=== PATIENT | female | born 1940 | race African-American/Black ===

== ENCOUNTER 2018-02-25 09:42 | Emergency (ER) | payer OTHER ==
[2018-02-25 09:48] VITALS: BMI 31.3
--- NOTE | 2018-02-25 10:08 | PDOC ---
History of Present Illness - General Chief Complaint: Pain, Acute Stated Complaint: LOWER BACK/FLANK,PAIN, ACUTE Time Seen by Provider: 02/25/18 10:06 History Source: Patient Exam Limitations: No Limitations Past History - Travel Traveled outside of the country in the last 30 days: No Close contact w/someone who was outside of country & ill: No - Past Medical History Allergies/Adverse Reactions: Allergies Allergy/AdvReac Type Severity Reaction Status Date / Time latex Allergy Verified 02/25/18 09:44 morphine Allergy Verified 02/25/18 09:45 Home Medications: Ambulatory Orders Amlodipine Besylate [Norvasc -] 10 mg PO DAILY 04/26/14 Aspirin [Aspirin EC] 81 mg PO DAILY 04/26/14 metFORMIN HCL [Glucophage -] 500 mg PO BID 04/26/14 Losartan/Hydrochlorothiazide [Losartan-Hctz 50-12.5 mg Tab] 1 each PO DAILY 01/06 Cyclobenzaprine HCl [Flexeril 10 mg] 10 mg PO BID PRN 02/25/18 Naproxen 500 mg PO BID 02/25/18 COPD: No Diabetes: Yes HTN: Yes - Suicide/Smoking/Psychosocial Hx Smoking History: Former smoker Have you smoked in the past 12 months: No If you are a former smoker, when did you quit?: 2004 Information on smoking cessation initiated: No Hx Alcohol Use: Yes (occasional) Substance Use Type: Alcohol Review of Systems - Review of Systems Able to Perform ROS?: Yes Comments:: 02/25/18 14:13 CONSTITUTIONAL: Absent: fever, chills, diaphoresis, generalized weakness, malaise, loss of appetite GASTROINTESTINAL: Absent: abdominal pain, abdominal distension, nausea, vomiting, diarrhea, constipation, melena, hematochezia GENITOURINARY: Absent: dysuria, frequency, urgency, hesitancy, hematuria, flank pain, genital pain MUSCULOSKELETAL: Present: low back pain Absent: arthralgia, joint swelling SKIN: Absent: rash, itching, pallor NEUROLOGIC: Absent: headache, focal weakness or paresthesias, dizziness, unsteady gait, seizure, mental status changes, bladder or bowel incontinence PSYCHIATRIC: Absent: anxiety, depression, suicidal or homicidal ideation, hallucinations. Is the patient limited [place] proficient: No *Physical Exam - Vital Signs Last Vital Signs Temp Pulse Resp BP Pulse Ox 98 F 102 H 18 140/86 100 02/25/18 09:45 02/25/18 09:45 02/25/18 09:45 02/25/18 09:45 02/25/18 09:45 - Physical Exam Comments: 02/25/18 14:13 GENERAL: Well developed, well nourished. Awake and alert. No acute distress. HEENT: Normocephalic, atraumatic. PERRLA, EOMI. No conjunctival pallor. Sclera are non- icteric. Moist mucous membranes. Oropharynx is clear. NECK: Supple. Full ROM. No JVD. Carotid pulses 2+ and symmetric, without bruits. No thyromegaly. No lymphadenopathy. CARDIOVASCULAR: Regular rate and rhythm. No murmurs, rubs, or gallops. Distal pulses are 2+ and symmetric. PULMONARY: No evidence of respiratory distress. Lungs clear to auscultation bilaterally. No wheezing, rales or rhonchi. ABDOMINAL: Soft. Non-tender. Non-distended. No rebound or guarding. No organomegaly. Normoactive bowel sounds. MUSCULOSKELETAL Normal range of motion at all joints. No bony deformities or tenderness. No CVA tenderness. EXTREMITIES: No cyanosis. No clubbing. No edema. No calf tenderness. SKIN: Warm and dry. Normal capillary refill. No rashes. No jaundice. NEUROLOGICAL: Alert, awake, appropriate. Cranial nerves 2-12 intact. No deficits to light touch and temperature in face, upper extremities and lower extremities. No motor deficits in the in face, upper extremities and lower extremities. Normoreflexic in the upper and lower extremities. Normal speech. Toes are down- going bilaterally. Gait is normal without ataxia. PSYCHIATRIC: Cooperative. Good eye contact. Appropriate mood and affect. Moderate Sedation - Procedure Monitoring Vital Signs: Procedure Monitoring Vital Signs Temperature 98 F 02/25/18 09:45 Pulse Rate 102 H 02/25/18 09:45 Respiratory Rate 18 02/25/18 09:45 Blood Pressure 140/86 02/25/18 09:45 O2 Sat by Pulse Oximetry (%) 100 02/25/18 09:45 Medical Decision Making - Medical Decision Making 02/25/18 14:13 Pt is a 89 y/o F who presents to the ED for R sided back pain and sciatica starting two days ago. -Pt with TTP of the L paraspinous muscles, L5-S1, with palpable knot consistent with muscle spasm. (+) straight leg raise. -No trauma, or fever. No saddle anesthesia or bladder/bowel incontinence. No CVA tenderness. -Pt is neurologically intact on exam with no focal findings. -Toradol, valium given with minimal relief of symptoms -Pt given 1mg of dialudid with complete relief of symptoms. -DC home. Pt has follow up with both her PCP and ortho, with MRI ordered for next week. -I discussed the physical exam findings, ancillary test results and final diagnoses with the patient. I answered all of the patient's questions. The patient was satisfied with the care received and felt comfortable with the discharge plan and treatment plan. The Patient agrees to follow up with the primary care physician/specialist within 24-72 hours. Return precautions were given. *DC/Admit/Observation/Transfer Diagnosis at time of Disposition: Acute low back pain with sciatica Qualifiers: Back pain laterality: right Sciatica laterality: sciatica of right side Qualified Code(s): M54.41 - Lumbago with sciatica, right side - Discharge Dispostion Disposition: HOME Condition at time of disposition: Stable Decision to Admit order: No - Referrals Referrals: Hadley Luong [Primary Care Provider] - - Patient Instructions Printed Discharge Instructions: DI for Low Back Pain Additional Instructions: You have low back pain . Please continue all medications as previously prescribed starting tonight before bed. Take the flexeril before you go to bed. Do not drive after taking this medication as it may make you sleepy. You may use warm compresses on your back to help with her symptoms. Please follow-up with your primary care doctor as previously arranged. Make sure to get your MRI as scheduled. Return to the emergency department if you have worsening back pain, bladder or bowel incontinence, numbness and tingling in her legs, changes in the way you walk, or any new or worsening symptoms. - Post Discharge Activity
[2018-02-25] MEDS ORDERED: diazePAM 5 MG TABLET ONE (10:34)
[2018-02-25] MEDS ORDERED: KETOROLAC TROMETHAMINE 15 MG/ML VIAL IM ONE (10:34)
[2018-02-25] MEDS ORDERED: diazePAM 5 MG TABLET PO ONE (10:34)
[2018-02-25] MEDS ORDERED: KETOROLAC TROMETHAMINE 15 MG/ML VIAL ONE (10:35)
[2018-02-25] MEDS ORDERED: HYDROmorphone HCL CARPU-JECT 2 MG/1 ML DISP.SYRIN IM ONE (13:10)
[2018-02-25] MEDS ORDERED: HYDROmorphone HCl 2 MG/ML VIAL ONE (13:15)
[2018-02-25 13:25] VITALS: BP 170/97; PULSE 72; TEMP 98.7
== END 2018-02-25 14:25 | disposition home or self-care (01) ==
LOC: JER 09:42
PROC: 3E033NZ Introduction of Analgesics, Hypnotics, Sedatives into Peripheral Vein, Percutaneous Approach (ICD-10-PCS; principal; 2018-02-25)
DX: M54.41 Lumbago with sciatica, right side (principal); M62.830 Muscle spasm of back; I10 Essential (primary) hypertension; E11.9 Type 2 diabetes mellitus without complications; Z79.84 Long term (current) use of oral hypoglycemic drugs
CPT/HCPCS: 96372; 99282-25

== ENCOUNTER 2018-10-09 13:57 | Emergency (ER) | payer OTHER ==
[2018-10-09 14:05] VITALS: BP 163/79; PULSE 74; TEMP 99.3; BMI 31.3
[2018-10-09] MEDS ORDERED: KETOROLAC TROMETHAMINE 60 MG/2 ML VIAL IM ONE (14:07)
[2018-10-09] MEDS ORDERED: KETOROLAC TROMETHAMINE 60 MG/2 ML VIAL ONE (14:09)
--- NOTE | 2018-10-09 14:19 | PDOC ---
Documentation entered by Fritz Barboza SCRIBE, acting as scribe for Cassandra Downing MD. Cassandra Downing MD: This documentation has been prepared by the Jabari escudero Daniel, SCRIBE, under my direction and personally reviewed by me in its entirety. I confirm that the documentation accurately reflects all work, treatment, procedures, and medical decision making performed by me. History of Present Illness - General Chief Complaint: Pain Stated Complaint: back pain Time Seen by Provider: 10/09/18 13:59 History Source: Patient Exam Limitations: No Limitations - History of Present Illness Initial Comments: 10/09/18 14:15 The patient is a 78 year old female with a past medical history of sciatica, diabetes, and HTN here today for evaluation of left lower extremity pain. The patient reports that her pain started on Friday and radiates from her left buttock down her left leg. She reports that this pain is the same as the sciatica pain she has had in the past. She notes taking tylenol and flexeril which provided no relief. She denies any weakness in her legs or any trauma. Denies nausea, vomiting, diarrhea, abdominal pain. Denies any urinary symptoms. Allergies: latex, morphine Past History - Past Medical History Allergies/Adverse Reactions: Allergies Allergy/AdvReac Type Severity Reaction Status Date / Time latex Allergy Verified 10/09/18 13:59 morphine Allergy Verified 10/09/18 13:59 Home Medications: Ambulatory Orders Amlodipine Besylate [Norvasc -] 10 mg PO DAILY 04/26/14 Aspirin [Aspirin EC] 81 mg PO DAILY 04/26/14 metFORMIN HCL [Glucophage -] 500 mg PO BID 04/26/14 Losartan/Hydrochlorothiazide [Losartan-Hctz 50-12.5 mg Tab] 1 each PO DAILY 01/06 Naproxen 500 mg PO BID 02/25/18 COPD: No Diabetes: Yes HTN: Yes Other medical history: sciatic pain - Suicide/Smoking/Psychosocial Hx Smoking History: Never smoked Have you smoked in the past 12 months: No If you are a former smoker, when did you quit?: 2004 Hx Alcohol Use: No Drug/Substance Use Hx: No Substance Use Type: Alcohol Review of Systems - Review of Systems Able to Perform ROS?: Yes Comments:: 10/09/18 14:15 GENERAL/CONSTITUTIONAL: No fever or chills. No weakness. HEAD, EYES, EARS, NOSE AND THROAT: No change in vision. No ear pain or discharge. No sore throat. CARDIOVASCULAR: No chest pain or shortness of breath. RESPIRATORY: No cough, wheezing, or hemoptysis. GASTROINTESTINAL: No nausea, vomiting, diarrhea or constipation. GENITOURINARY: No dysuria, frequency, or change in urination. MUSCULOSKELETAL: +left lower extremity pain. No neck or back pain. SKIN: No rash NEUROLOGIC: No headache, vertigo, loss of consciousness, or change in strength/ sensation. ENDOCRINE: No increased thirst. No abnormal weight change. HEMATOLOGIC/LYMPHATIC: No anemia, easy bleeding, or history of blood clots. ALLERGIC/IMMUNOLOGIC: No hives or skin allergy. *Physical Exam - Vital Signs Last Vital Signs Temp Pulse Resp BP Pulse Ox 99.3 F 74 18 163/79 99 10/09/18 13:58 10/09/18 13:58 10/09/18 13:58 10/09/18 13:58 10/09/18 13:58 - Physical Exam Comments: 10/09/18 14:16 GENERAL: +moderately uncomfortable. Awake, alert, and fully oriented HEAD: No signs of trauma EYES: PERRLA, EOMI, sclera anicteric, conjunctiva clear ENT: Auricles normal inspection, hearing grossly normal, nares patent, oropharynx clear without exudates. Moist mucosa NECK: Normal ROM, supple, no lymphadenopathy, JVD, or masses LUNGS: Breath sounds equal, clear to auscultation bilaterally. No wheezes, and no crackles HEART: Regular rate and rhythm, normal S1 and S2, no murmurs, rubs or gallops ABDOMEN: Soft, nontender, normoactive bowel sounds. No guarding, no rebound. No masses BACK: +paraspinal tenderness in sacral spine. EXTREMITIES: Normal range of motion, no edema. No clubbing or cyanosis. No cords, erythema, or tenderness NEUROLOGICAL: Cranial nerves II through XII grossly intact. Normal speech, normal gait SKIN: Warm, Dry, normal turgor, no rashes or lesions noted. ED Treatment Course - Medications Given in the ED: ED Medications Discontinued Medications Generic Name Dose Route Start Last Admin Trade Name Freq PRN Reason Stop Dose Admin Ketorolac Tromethamine 60 mg 10/09/18 14:07 10/09/18 14:17 Toradol Injection - IM 10/09/18 14:08 60 mg ONCE ONE Administration Medical Decision Making - Medical Decision Making 10/09/18 14:18 Pt presents to the Ed complaining of atraumatic lower back pain radiating down her R leg, similar to previous episodes of sciatica. No neurologic complaints. Will give pain control and reassess--likely discharge home when pain controlled. *DC/Admit/Observation/Transfer Diagnosis at time of Disposition: Acute low back pain with sciatica Qualifiers: Back pain laterality: right Sciatica laterality: sciatica of right side Qualified Code(s): M54.41 - Lumbago with sciatica, right side - Discharge Dispostion Disposition: HOME Condition at time of disposition: Good Decision to Admit order: No - Referrals - Patient Instructions Printed Discharge Instructions: DI for Low Back Pain Additional Instructions: you came to the ED for low back pain which was most likely caused by your sciatica. You should return to the ED for worsening symptoms, including severe pain, loss of bowel or bladder control, pain with fever, weakness of the legs. Call your doctor for follow up on Friday. - Post Discharge Activity
[2018-10-09] MEDS ORDERED: HYDROmorphone HCL CARPU-JECT 1 MG/1 ML DISP.SYRIN IM ONE (14:46)
[2018-10-09] MEDS ORDERED: HYDROmorphone HCL CARPU-JECT 1 MG/1 ML DISP.SYRIN ONE (14:52)
== END 2018-10-09 15:42 | disposition home or self-care (01) ==
LOC: FER 13:57
PROC: 3E0333Z Introduction of Anti-inflammatory into Peripheral Vein, Percutaneous Approach (ICD-10-PCS; principal; 2018-10-09)
PROC: 3E033NZ Introduction of Analgesics, Hypnotics, Sedatives into Peripheral Vein, Percutaneous Approach (ICD-10-PCS; 2018-10-09)
DX: M54.41 Lumbago with sciatica, right side (principal)
CPT/HCPCS: 96372; 99282-25

== ENCOUNTER 2019-12-15 14:35 | Emergency (ER) | payer OTHER ==
[2019-12-15 14:40] VITALS: BP 167/87; PULSE 66; TEMP 99.3; BMI 31.3
--- NOTE | 2019-12-15 14:58 | PDOC ---
History of Present Illness - General History Source: Patient Exam Limitations: No Limitations - History of Present Illness Initial Comments: 12/15/19 15:39 79 y.o. F PMHx HTN, Diabetes, sciatica presenting due to a L sided headache that has been persistent for the past week. Patient states the headache radiated down the neck to the right shoulder asocaited with a L ear pain and dull pain behind to L eye. Patient sttaed the pain is worse when lying down. She has been using her computer frequently this past week which she uses her L arm for. She has not taken anything for the pain. Denies blurry/double vision, dizziness, chest pain, SOB, N/V. PCP: Dr. Luong PMHx: Diabetes, HTN Meds: In Chart Allergies: Latex, morphine CT scan: No acute intracranial pathology Dispo: D/C Home 12/15/19 17:12 Is this a multiple visit Asthma Patient?: No Timing/Duration: 1 week Severity: moderate Associated Symptoms: reports: headaches. denies: chest pain, fever/chills, nausea/vomiting, shortness of breath, syncope Aspirin Received prior to arrival: No: unknown Asa Contraindications(Core Measure): No: Other Beta Petrona Contraindications(Core Measure): Yes: Not Prescribed Beta Petrona Given by EMS(Core Measure): No Beta Petrona Taken at Home(Core Measure): No Beta Petrona Not Indicated at this Time(Core Measure): No <Vishnu Tatum - Last Filed: 12/15/19 17:22> <Maria A Dahl - Last Filed: 12/16/19 07:24> - General Chief Complaint: Headache Stated Complaint: HEADACHE Time Seen by Provider: 12/15/19 15:00 Past History - Medical History Asthma: Yes COPD: No Diabetes: Yes HTN: Yes - Reproductive History Is Patient Now?: No - Immunization History Immunization Up to Date: No - Psycho-Social/Smoking History Smoking History: Never smoked Have you smoked in the past 12 months: No If you are a former smoker, when did you quit?: 2004 Information on smoking cessation initiated: No - Substance Abuse Hx (Audit-C & DAST Scrn) How often the patient has a drink containing alcohol: Never Score: In Men: 4 or > Positive; In Women: 3 or > Positive: 0 Screen Result (Pos requires Nsg. Audit-10AR): Negative In the last yr the pt used illegal drug/Rx for NonMed reason: No Score: Yes response is considered Positive: 0 Screen Result (Positive result requires Nsg. DAST-10): Negative <Vishnu Tatum - Last Filed: 12/15/19 17:22> <Maria A Dahl - Last Filed: 12/16/19 07:24> - Medical History Allergies/Adverse Reactions: Allergies Allergy/AdvReac Type Severity Reaction Status Date / Time latex Allergy Verified 10/09/18 13:59 morphine Allergy Verified 10/09/18 13:59 Home Medications: Ambulatory Orders Amlodipine Besylate [Norvasc -] 10 mg PO DAILY 04/26/14 Aspirin [Aspirin EC] 81 mg PO DAILY 04/26/14 metFORMIN HCL [Glucophage -] 500 mg PO BID 04/26/14 Losartan/Hydrochlorothiazide [Losartan-Hctz 50-12.5 mg Tab] 1 each PO DAILY 02/01/16 Naproxen 500 mg PO BID 02/25/18 Cyclobenzaprine HCl [Flexeril -] 10 mg PO HS #7 tablet 12/15/19 Review of Systems - Review of Systems Able to Perform ROS?: Yes Is the patient limited [place] proficient: No Constitutional: No: Chills, Fever HEENTM: No: Blurred Vision, Double Vision Respiratory: No: Cough, Shortness of Breath Cardiac (ROS): No: Chest Pain, Lightheadedness ABD/GI: No: Constipated, Diarrhea, Nausea, Vomiting : No: Burning, Dysuria Musculoskeletal: Yes: Muscle Pain, Neck Pain. No: Muscle Weakness Integumentary: No: Bruising, Dryness Neurological: Yes: Headache. No: Numbness, Tingling, Dizziness Hematologic/Lymphatic: No: Blood Clots, Easy Bleeding <Vishnu Tatum - Last Filed: 12/15/19 17:22> *Physical Exam - Vital Signs Last Vital Signs Temp Pulse Resp BP Pulse Ox 99.3 F 66 16 167/87 99 12/15/19 14:37 12/15/19 14:37 12/15/19 14:37 12/15/19 14:37 12/15/19 14:37 - Physical Exam General Appearance: Yes: Nourished, Appropriately Dressed. No: Apparent Distress HEENT: positive: Normal ENT Inspection, TMs Normal Respiratory/Chest: positive: Lungs Clear, Normal Breath Sounds. negative: Chest Tender, Respiratory Distress, Accessory Muscle Use, Crackles, Stridor, Wheezing Cardiovascular: positive: Regular Rhythm, Regular Rate. negative: JVD, Murmur Gastrointestinal/Abdominal: positive: Normal Bowel Sounds, Flat, Soft. negative: Tender, Organomegaly, Guarding, Rebound, Tenderness Musculoskeletal: positive: Normal Inspection. negative: CVA Tenderness Neurologic: positive: manager core II-XII NML intact, Fully Oriented, Alert, Normal Mood/Affect, Normal Response, Motor Strength 5/5 <Vishnu Tatum - Last Filed: 12/15/19 17:22> - Vital Signs Last Vital Signs Temp Pulse Resp BP Pulse Ox 99.3 F 66 16 167/87 99 12/15/19 14:37 12/15/19 14:37 12/15/19 14:37 12/15/19 14:37 12/15/19 14:37 - Physical Exam Extremity: positive: Normal Capillary Refill, Normal Inspection, Normal Range of Motion Integumentary: positive: Normal Color, Dry, Warm <Maria A Dahl - Last Filed: 12/16/19 07:24> ED Treatment Course - Medications Given in the ED: ED Medications Discontinued Medications Generic Name Dose Route Start Last Admin Trade Name Raq PRN Reason Stop Dose Admin Acetaminophen 975 mg 12/15/19 15:21 12/15/19 15:44 Tylenol - PO 12/15/19 15:22 975 mg ONCE ONE Administration Lidocaine 1 patch 12/15/19 15:22 12/15/19 15:44 Lidoderm Patch - TP 12/15/19 15:23 1 patch ONCE ONE Administration Methocarbamol 500 mg 12/15/19 15:22 12/15/19 15:52 Robaxin - PO 12/15/19 15:23 Not Given ONCE ONE <Maria A Dahl - Last Filed: 12/16/19 07:24> Medical Decision Making - Medical Decision Making 12/15/19 15:48 79 y.o. F PMHx HTN, Diabetes, sciatica presenting due to a L sided headache that has been persistent for the past week. DDx: Tension headache, Migraine, cluster headache, subarachnoid hemorrhage CT: No acute intracranial pathology Meds given: Lidocaine patch 5%, Tylenol 975mg. Dispo: d/c Home 12/15/19 17:22 <Vishnu Tatum - Last Filed: 12/15/19 17:22> Discharge - Discharge Information Problems reviewed: Yes - Admission No <Vishnu Tatum - Last Filed: 12/15/19 17:22> <Maria A Dahl - Last Filed: 12/16/19 07:24> - Discharge Information Clinical Impression/Diagnosis: Headache Qualifiers: Headache type: unspecified Headache chronicity pattern: unspecified pattern Intractability: not intractable Qualified Code(s): R51 - Headache Condition: Stable Disposition: HOME - Additional Discharge Information Prescriptions: Cyclobenzaprine HCl [Flexeril -] 10 mg PO HS #7 tablet - Follow up/Referral Referrals: Hadley Luong [Primary Care Provider] - Lonny Moreno MD [Staff Physician] - - Patient Discharge Instructions Patient Printed Discharge Instructions: Tension Headache, DI for Hormonal and Tension Headaches Additional Instructions: You were seen in the emergency department for tension headaches. You received a lidocaine patch and tylenol. Your labs and imaging showed no acute intracranial pathology on CT scan. This can be caused by muscle tension. As such you were treated for tension headaches. You were given a lidocaine patch and tylenol in the emergency department and sent home with a prescription of flexeril please be aware to not drive while on this medication as is can cause drowsiness. Please follow up with your primary care physician and or Neurologist regarding your visit to the emergency department. If you experience profound headache, blurry vission, decreased vision, numbness/tingling in the arms or legs, nausea or vomiting please return to the emergency department or call 911. - Post Discharge Activity
[2019-12-15] MEDS ORDERED: ACETAMINOPHEN 500 MG TABLET (FP) PO ONE (15:21)
[2019-12-15] MEDS ORDERED: LIDOCAINE 5% TOPICAL PATCH TP ONE (15:22)
[2019-12-15] MEDS ORDERED: ACETAMINOPHEN 325 MG TABLET (FP) ONE (15:42)
[2019-12-15] MEDS ORDERED: METHOCARBAMOL 500 MG TABLET ONE (15:42)
[2019-12-15] MEDS ORDERED: LIDOCAINE 5% TOPICAL PATCH ONE (15:43)
[2019-12-15] MEDS: METHOCARBAMOL 500 MG TABLET PO ONE ×2 (15:44→15:52)
--- NOTE | 2019-12-15 16:06 | PDOC ---
Documentation entered by Nannette Kim SCRIBE, acting as scribe for Maria A Dahl MD. Maria A Dahl MD: This documentation has been prepared by the Julio escudero Xhesika, SCRIBE, under my direction and personally reviewed by me in its entirety. I confirm that the documentation accurately reflects all work, treatment, procedures, and medical decision making performed by me. Attending Attestation - Resident Resident Name: Vishnu Tatum - ED Attending Attestation I have performed the following: I have examined & evaluated the patient, The case was reviewed & discussed with the resident, I agree w/resident's findings & plan - HPI HPI: 12/15/19 15:26 Patient is a 79 year old female with a pmh of sciatica, diabetes, and HTN who presents to the ED for 1 week of L sided headache and bilateral neck pain/spasms. Pt denies any injuries or trauma. Pt states her pain is associated with L ear pain, worse when laying down and relieved when sitting. Denies fever, chills, chest pain, SOB, palpitation, dizziness, weakness, N, V, D, abdominal pain, bladder and bowel problems, leg swelling, No sick contacts or travel. No new changes in medications. Allergies: Latex, Morphine Past Medical History: see HPI Social history: Lives with family. No tobacco, ETOH or drug use. Meds: as documented in EMR PMD: Nabila Henry - Physicial Exam PE: 12/15/19 15:27 Agree with the resident's HPI and PE as documented in the electronic medical record. NAD, well appearing, EOMI, PERRL, MMM, nl conjunctiva, anicteric; neck supple. lungs clear, RRR, abdomen soft nontender. +bilateral para-cervical tenderness and spasms. Back nontender. HADDAD x4, no focal neuro deficits. speech clear. No peripheral edema. normal color for ethnicity, WWP. 12/16/19 07:25 - Medical Decision Making 12/15/19 16:00 Vital Signs Temp Pulse Resp BP Pulse Ox 99.3 F 66 16 167/87 99 12/15/19 14:37 12/15/19 14:37 12/15/19 14:37 12/15/19 14:37 12/15/19 14:37 DDX headache: migraine, tension, cluster headache, SAH, CVA, head bleed/ICH. no meningeal signs. no fever, nontoxic The patient presents with an acute onset headache for 1 week in duration. Patient has no past history of headaches. There is not a history of anticoagulation, trauma, , cancer or immunocompromised state. Mental status was normal, no neurological deficits were noted. Based on the patient's history and physical there is very low clinical suspicion for significant intracranial pathology. The headache was NOT sudden onset, NOT maximal at onset, there are NO neurologic findings, the patient does NOT have a fever, the patient does NOT have any jaw claudication, the patient does NOT endorse a clotting disorder, patient DENIES any trauma or eye pain and the headache is NOT associated with dizziness or ataxia. Will treatment the patient symptomatically and reassess. Kernig and Brudzinski signs are negative, no petechiae, no photophobia, no dysarthria, no facial asymmetry, and no focal deficits. Very low clinical suspicion for meningitis. No evidence of subarachnoid hemorrhage, intracranial bleed, meningitis, encephalitis, temporal arteritis, or intracranial mass. Patient denies new weakness on one side of the body, diplopia, vertigo, slurred speech, headache, or difficulty walking. head CT to eval for intracranial pathology, pending result most likely tension headache/cervicalgia, given radiation from intense paracervical spasms. 12/16/19 07:25 Discharge - Discharge Information Problems reviewed: Yes Clinical Impression/Diagnosis: Headache Qualifiers: Headache type: unspecified Headache chronicity pattern: unspecified pattern Intractability: not intractable Qualified Code(s): R51 - Headache Condition: Stable Disposition: HOME - Admission No - Additional Discharge Information Prescriptions: Cyclobenzaprine HCl [Flexeril -] 10 mg PO HS #7 tablet - Follow up/Referral Referrals: Lonny Moreno MD [Staff Physician] - Hadley Luong [Primary Care Provider] - - Patient Discharge Instructions Patient Printed Discharge Instructions: Tension Headache, DI for Hormonal and Tension Headaches Additional Instructions: You were seen in the emergency department for tension headaches. You received a lidocaine patch and tylenol. Your labs and imaging showed no acute intracranial pathology on CT scan. This can be caused by muscle tension. As such you were treated for tension headaches. You were given a lidocaine patch and tylenol in the emergency department and sent home with a prescription of flexeril please be aware to not drive while on this medication as is can cause drowsiness. Please follow up with your primary care physician and or Neurologist regarding your visit to the emergency department. If you experience profound headache, blurry vission, decreased vision, numbness/tingling in the arms or legs, nausea or vomiting please return to the emergency department or call 911. - Post Discharge Activity
--- OUTSIDE RECORDS SUMMARY | 2019-12-15 19:35 | XMS ---
:1940 Author Organization [facility] Care Team Providers Name Role Phone GREGG WRIGHT Unavailable Unavailable Re-disclosure Warning The records that you are about to access may contain information from federally- assisted alcohol or drug abuse programs. If such information is present, then the following federally mandated warning applies: This information has been disclosed to you from records protected by federal confidentiality rules (42 CFR part 2). The federal rules prohibit you from making any further disclosure of this information unless further disclosure is expressly permitted by the written consent of the person to whom it pertains or as otherwise permitted by 42 CFR part 2. A general authorization for the release of medical or other information is NOT sufficient for this purpose. The Federal rules restrict any use of the information to criminally investigate or prosecute any alcohol or drug abuse patient.The records that you are about to access may contain highly sensitive health information, the redisclosure of which is protected by Article 27-F of the [facility] Public Health law. If you continue you may haveaccess to information: Regarding HIV / AIDS; Provided by facilities licensed or operated by the [facility] Office of Mental Health; or Provided by the [facility] Office for People With Developmental Disabilities. If such information is present, then the following [facility] mandated warning applies: This information has been disclosed to you from confidential records which are protected by state law. State law prohibits you from making any further disclosure of this information without the specific written consent of the person to whom it pertains, or as otherwise permitted by law. Any unauthorized further disclosure in violation of state law may result in a fine or fci sentence or both. A general authorization for the release of medical or other information is NOT sufficient authorization for further disclosure. Encounters Encounter Providers Location Date Indications Data Source(s ) Outpatient Attender: RAQUEL Hurtado 02/11/2019 [facility] WRIGHTAdmitter: RAQUEL 12:46:00 PM Medic al Center GREGG GARCÍA MATTI SHIUANReferrer: RAQUEL WRIGHT Insurance Providers Payer name Policy type Policy ID Covered Covered constitution party's Policy P diana / Coverage constitution party ID relationship to [facility] ormation type melchor MEDICARE [id number] SP [id number] UMR [id number] SP [id number] MEDICARE [id number] SP [id number] A UMR O [id number] 01 [id number] 01 [id number] 16 6 Problems, Conditions, and Diagnoses Code Display Name Description Problem Type Effective Data Sour ce(s) Dates E55.9 Vitamin D VITAMIN D Diagnosis 02/11/2019 [facility] deficiency, DEFICIENCY, 12:46:[address] unspecified UNSPECIFIED EST E78.5 Hyperlipidemia, HYPERLIPIDEMIA, Diagnosis 02/11/2019 [facility] unspecified UNSPECIFIED 12:46:[address] EST M19.90 Unspecified UNSPECIFIED Diagnosis 02/11/2019 [facility] osteoarthritis, OSTEOARTHRITIS, 12:46:00 PM [facility] unspecified site UNSPECIFIED SITE EST E11.9 Type 2 diabetes TYPE 2 DIABETES Diagnosis 02/11/2019 [facility] mellitus without MELLITUS WITHOUT 12:46:00 PM [facility] complications COMPLICATIONS EST I10 Essential (primary) ESSENTIAL Diagnosis 02/11/2019 [facility] hypertension (PRIMARY) 12:46:[address] HYPERTENSION EST E89.9 OSTEOARTHRITIS, OSTEOARTHRITIS, Diagnosis 02/11/2019 [place] UNSPECI UNSPECI 12:46:00 PM Medical Cente r EST M89.9 Disorder of bone, DISORDER OF BONE, Diagnosis 02/11/2019 [facility] unspecified UNSPECIFIED 12:46:[address] EST Results ID Date Data Source Urinalysis.[id number] 02/11/2019 01:04:00 PM EST [facility] 0 Name Value Range Interpretation Description Data Sup porting Code Source(s) Document(s ) Color of Urine YELLOW <content [facility] styleCode="Abbie Mahnaz d">Color, Medical Urine Center </content>YELL OW <content styleCode="Reyna lics"> (YELLOW )</content> UNK CLEAR <content [facility] styleCode="[facility] d">Urine Medical Clarity Center </content>LELAND R <content styleCode="Reyna lics"> (CLEAR )</content> Glucose NEGATIVE <content [facility] [Mass/volume] styleCode="Abbie Joya in Urine by d">Urine Medical Test strip Glucose Center </content>NEGA TIVE MG/DL<content styleCode="Reyna lics"> (NEGATIVE MG/DL)</conten t> UNK NEGATIVE <content [facility] styleCode="[facility] d">Urine Medical Bilirubin Center </content>NEGA TIVE <content styleCode="Reyna lics"> (NEGATIVE )</content> Ketones NEGATIVE <content [facility] [Mass/volume] styleCode="[facility] Joya in Urine by d">Urine Medical Test strip Ketone Center </content>NEGA TIVE MG/DL<content styleCode="Reyna lics"> (NEGATIVE MG/DL)</conten t> pH of Urine by 4.5-8.0 <content [facility] Test strip styleCode="Abbie Maress d">Urine pH Medical </content>7.0 Center <content styleCode="Reyna lics"> (4.5-8.0 )</content> Specific 1.015-1.02 Below low normal <content [facility] gravity of 5 styleCode="Abbie Joya Urine by Test d">Urine Medical strip Specific Center [place] </content>1.01 0 L<content styleCode="Reyna lics"> (1.015-1.025 )</content> Hemoglobin NEGATIVE <content [facility] [Presence] in styleCode="Abbie Maress Urine by Test d">Urine Blood Medical strip </content>NEGA Center TIVE <content styleCode="Reyna lics"> (NEGATIVE )</content> Nitrite NEGATIVE <content [facility] [Presence] in styleCode="[facility] Joya Urine by Test d">Urine Medical strip Nitrite Center </content>NEGA TIVE <content styleCode="Reyna lics"> (NEGATIVE )</content> Protein NEGATIVE <content [facility] [Mass/volume] styleCode="Abbie Maress in Urine by d">Urine Medical Test strip Protein Center </content>NEGA TIVE MG/DL<content styleCode="Reyna lics"> (NEGATIVE MG/DL)</conten t> Urobilinogen 0.2-1.0 <content [facility] [Units/volume] styleCode="Abbie Joya in Urine by d">Urine Medical Test strip Urobilinogen Center </content>0.2 MG/DL<content styleCode="Reyna lics"> (0.2-1.0 MG/DL)</conten t> Leukocyte NEGATIVE <content [facility] esterase styleCode="Abbie Joya [Presence] in d">Urine Medical Urine by Test Leukocyte Center strip </content>MODE RATE <content styleCode="Reyna lics"> (NEGATIVE )</content> UNK 0-3 <content [facility] styleCode="Abbie Mahnaz d">Urine White Medical Blood Cell Center </content>5 - 10 HPF<content styleCode="Reyna lics"> (0-3 HPF)</content> UNK NEGATIVE <content [facility] styleCode="Abbie Mahnaz d">Urine Medical Bacteria Center </content>MODE RATE HPF<content styleCode="Reyna lics"> (NEGATIVE HPF)</content> UNK 0-3 <content [facility] styleCode="Abbie Mahnaz d">Urine Red Medical Blood Cell Center </content>0-3 HPF<content styleCode="Reyna lics"> (0-3 HPF)</content> UNK NONE SEEN <content [facility] styleCode="Abbie Mahnaz d">Epithelial Medical Cell Center </content>10 - 20 HPF<content styleCode="Reyan lics"> (NONE SEEN HPF)</content> ID Date Data Source Liver 02/11/2019 01:04:00 PM EST [facility] Profile.[id number] Name Value Range Interpretation Description Data Sup porting Code Source(s) Document(s ) Alanine 7-30 <content [facility] aminotransferase styleCode="Bold"> Chung hs [Enzymatic Alanine Medical activity/volume] Aminotransferase Center in Serum or Plasma (ALT) </content>17 IU/L<content styleCode="Italic s"> (7-30 IU/L)</content> Aspartate 14-36 <content [facility] aminotransferase styleCode="Bold"> Chung hs [Enzymatic Aspartate Medical activity/volume] Aminotransferase Center in Serum or Plasma (AST) </content>31 IU/L<content styleCode="Italic s"> (14-36 IU/L)</content> Alkaline 38-126 <content [facility] phosphatase styleCode="Bold"> Mahnaz [Enzymatic Alkaline Medical activity/volume] Phosphatase (ALP) Cente r in Serum or Plasma </content>105 IU/L<content styleCode="Italic s"> (38-126 IU/L)</content> Albumin 3.5-5.0 <content [facility] [Mass/volume] in styleCode="Bold"> Chung hs Serum or Plasma Albumin Medical </content>4.2 Center G/DL<content styleCode="Italic s"> (3.5-5.0 G/DL)</content> UNK 0.0-0.3 <content [facility] styleCode="Bold"> [facility] Bilirubin, Direct Medical </content>< 0.2 Center MG/DL<content styleCode="Italic s"> (0.0-0.3 MG/DL)</content> Bilirubin.total 0.2-1.3 <content [facility] [Mass/volume] in styleCode="Bold"> Chung hs Serum or Plasma Bilirubin Total Medical </content>0.5 Center MG/DL<content styleCode="Italic s"> (0.2-1.3 MG/DL)</content> ID Date Data Source LIPID.[id number] 02/11/2019 01:04:00 PM EST [facility] Center Name Value Range Interpretation Description Data Sup porting Code Source(s) Document(s ) Triglyceride < 150 <content [facility] [Mass/volume] in styleCode="Abbie Mahnaz Serum or Plasma d">Triglycerid [facility] Center </content>73 MG/DL<content styleCode="Reyna lics"> (< 150 MG/DL)</conten t> Cholesterol -<200 <content [facility] [Mass/volume] in styleCode="Abbie Mahnaz Serum or Plasma d">Cholesterol Medical </content>167 Center MG/DL<content styleCode="Reyna lics"> (-<200 MG/DL)</conten t> UNK > 60 Below low normal <content [facility] styleCode="Abbie Mahnaz d">HDL- Medical Cholesterol Center </content>45 MG/DL L<content styleCode="Reyna lics"> (> 60 MG/DL)</conten t> UNK < 100 Above high normal <content [facility] styleCode="Abbie Mahnaz d">LDL-Cholest [facility] [place] </content>107 MG/DL H<content styleCode="Reyna lics"> (< 100 MG/DL)</conten t> ID Date Data Source Hormones.[id number] 02/11/2019 01:04:00 PM EST [facility] Name Value Range Interpretation Description Data Sup porting Code Source(s) Document(s ) Thyrotropin 0.465-4. <content [facility] [Units/volume] 68 styleCode="Abbie Mahnaz in Serum or d">Thyroid Medical Plasma by Stimulating Center Detection Hormone limit <= 0.05 </content>1.17 mIU/L MIU/L<content styleCode="Reyna lics"> (0.465-4.68 MIU/L)</conten t> ID Date Data Source HematologyRou.[id number] 02/11/2019 01:04:00 PM EST [facility] [facility] 0500 Name Value Range Interpretation Description Data Sup porting Code Source(s) Document(s ) Leukocytes 4.4-11.0 <content [facility] [#/volume] in styleCode="[facility] Blood by ">White Blood Medical Automated count Cell Count Center </content>5.65 KCUMM<content styleCode="Ital ics"> (4.4-11.0 KCUMM)</content > Erythrocytes 4.0-5.1 <content [facility] [#/volume] in styleCode="Bold Mahnaz Blood by ">Red Blood Medical Automated count Cell Count Center </content>4.76 MCUMM<content styleCode="Ital ics"> (4.0-5.1 MCUMM)</content > Hemoglobin 12.3-16. Below low normal <content [facility] [Mass/volume] in 0 styleCode="Bold Mahnaz Blood ">Hemoglobin Medical </content>12.0 Center G/DL L<content styleCode="Ital ics"> (12.3-16.0 G/DL)</content> Erythrocyte mean 80.0-100 <content [facility] corpuscular .0 styleCode="Bold Mahnaz volume [Entitic ">Mean Medical volume] by Corpuscular Center Automated count Volume </content>79.4 FL<content styleCode="Ital ics"> (80.0-100.0 FL)</content> Hematocrit 36.0-46. <content [facility] [Volume 0 styleCode="Bold Manhaz Fraction] of ">Hematocrit Medical Blood by </content>37.8 Center Automated count %<content styleCode="Ital ics"> (36.0-46.0 %)</content> Erythrocyte mean 26.0-34. Below low normal <content [facility] corpuscular 0 styleCode="[facility]naz hemoglobin ">Mean Medical [Entitic mass] Corposcular Center by Automated Hemoglobin count </content>25.2 PG L<content styleCode="Ital ics"> (26.0-34.0 PG)</content> Erythrocyte 11.5-14. Above high <content [facility] distribution 5 normal styleCode="Bold Mahnaz width [Ratio] by ">Red Cell Medical Automated count Distribution Center Width </content>15.0 % H<content styleCode="Ital ics"> (11.5-14.5 %)</content> Platelets 130-400 <content [facility] [#/volume] in styleCode="Bold Mahnaz Blood by ">Platelet Medical Automated count Count Center </content>201 KCUMM<content styleCode="Ital ics"> (130-400 KCUMM)</content > Erythrocyte mean 32.0-37. Below low normal <content [facility] corpuscular 0 styleCode="Bold Mahnaz hemoglobin ">Mean Corpus. Medical concentration Hgb Center [Mass/volume] by Concentration Automated count (MCHC) </content>31.7 G/DL L<content styleCode="Ital ics"> (32.0-37.0 G/DL)</content> UNK 1.6-7.3 <content [facility] styleCode="Bold Mahnaz ">Neutrophil Medical Count Center </content>2.43 KCUMM<content styleCode="Ital ics"> (1.6-7.3 KCUMM)</content > Neutrophils 36-66 <content [facility] [#/volume] in styleCode="Bold Mahnaz Blood by ">Neutrophil Medical Automated count </content>43.1 Center %<content styleCode="Ital ics"> (36-66 %)</content> Lymphocytes 24.0-44. <content [facility] [#/volume] in 0 styleCode="Bold Mahnaz Blood by ">Lymphocyte Medical Automated count </content>41.2 Center %<content styleCode="Ital ics"> (24.0-44.0 %)</content> Platelet mean 8.0-11.0 Above high <content [facility] volume [Entitic normal styleCode="Bold Mahnaz volume] in Blood ">Mean Platelet Medical by Automated Volume Center count </content>11.2 FL H<content styleCode="Ital ics"> (8.0-11.0 FL)</content> Eosinophils 0-5.0 <content [facility] [#/volume] in styleCode="Bold Mahnaz Blood by ">Eosinophil Medical Automated count </content>4.2 Center %<content styleCode="Ital ics"> (0-5.0 %)</content> Monocytes 3.0-10.0 Above high <content [facility] [#/volume] in normal styleCode="Bold Mahnaz Blood by ">Monocyte Medical Automated count </content>10.4 Center % H<content styleCode="Ital ics"> (3.0-10.0 %)</content> UNK 1.0-4.8 <content [facility] styleCode="Bold Mahnaz ">Lymphocyte Medical Count Center </content>2.33 KCUMM<content styleCode="Ital ics"> (1.0-4.8 KCUMM)</content > UNK 0.2-0.9 <content [facility] styleCode="Bold Mahnaz ">Monocyte Medical Count Center </content>0.59 KCUMM<content styleCode="Ital ics"> (0.2-0.9 KCUMM)</content > Basophils 0.0-1.0 <content [facility] [#/volume] in styleCode="Bold Mahnaz Blood by ">Basophil Medical Automated count </content>0.7 Center %<content styleCode="Ital ics"> (0.0-1.0 %)</content> UNK 0 <content [facility] styleCode="Bold Mahnaz ">Nucleated Red Medical Blood Cell Center </content>0.0 /100<content styleCode="Ital ics"> (0 /100)</content> UNK 0.0-0.6 <content [facility] styleCode="Bold Mahnaz ">Eosinophil Medical Count Center </content>0.24 KCUMM<content styleCode="Ital ics"> (0.0-0.6 KCUMM)</content > UNK 0.0-0.3 <content [facility] styleCode="Bold Mahnaz ">Basophil Medical Count Center </content>0.04 KCUMM<content styleCode="Ital ics"> (0.0-0.3 KCUMM)</content > UNK 0-0.1 <content [facility] styleCode="Bold Mahnaz ">Immature Medical Granulocyte Center Count </content>0.02 KCUMM<content styleCode="Ital ics"> (0-0.1 KCUMM)</content > UNK 0.0 <content [facility] styleCode="Bold Mahnaz ">Nucleated Red Medical Blood Cell Center Count </content>0.00 KCUMM<content styleCode="Ital ics"> (0.0 KCUMM)</content > UNK < 1 <content [facility] styleCode="Bold Mahnaz ">Immature Medical Granulocyte Center Ratio </content>0.4 %<content styleCode="Ital ics"> (< 1 %)</content> ID Date Data Source GFR(Creatinine).[id number] 02/11/2019 01:04:00 PM [facility] 0-0500 Name Value Range Interpretation Code Description Data Georgina rce(s) Supporting Document(s ) UNK > 60 <content [facility] styleCode="Bold"> Medical Cent er EGFR </content>62 GFR<content styleCode="Italic s"> (> 60 GFR)</content> ID Date Data Source CHMROUTINECCDA.[id number] 02/11/2019 01:04:00 PM [facility] -0500 Name Value Range Interpretation Description Data Sup porting Code Source(s) Document(s ) UNK >= 1.0 <content [facility] styleCode="Bold Medical ">AG Ratio Center </content>1.2 <content styleCode="Ital ics"> (>= 1.0 )</content> UNK 4.2-5.8 Above high normal <content [place] [facility] styleCode="Bold Medical ">Hemoglobin Center A1C </content>6.9 % H<content styleCode="Ital ics"> (4.2-5.8 %)</content> UNK 2.3-3.5 <content [facility] styleCode="Bold Medical ">Globulin Center </content>3.5 G/DL<content styleCode="Ital ics"> (2.3-3.5 G/DL)</content> Protein 6.3-8.2 <content [facility] [Mass/volum styleCode="Bold Medical e] in Serum ">Total Protein Center or Plasma </content>7.7 G/DL<content styleCode="Ital ics"> (6.3-8.2 G/DL)</content> Urate 3.8-8.5 <content [facility] [Mass/volum styleCode="Bold Medical e] in Serum ">Uric Acid Center or Plasma </content>7.3 MG/DL<content styleCode="Ital ics"> (3.8-8.5 MG/DL)</content > ID Date Data Source [facility].[id number] 02/11/2019 01:04:00 PM EST [facility] Name Value Range Interpretation Description Data Sup porting Code Source(s) Document(s ) Sodium 137-145 <content [facility] [Moles/volume] in styleCode="Bold"> Trey phs Serum or Plasma Sodium Medical </content>141 Center MEQ/L<content styleCode="Italic s"> (137-145 MEQ/L)</content> Potassium 3.5-5.3 <content [facility] [Moles/volume] in styleCode="Bold"> Trey phs Serum or Plasma Potassium Medical </content>4.2 Center MEQ/L<content styleCode="Italic s"> (3.5-5.3 MEQ/L)</content> Chloride 98-107 <content [facility] [Moles/volume] in styleCode="Bold"> Trey phs Serum or Plasma Chloride Medical </content>104 Center MEQ/L<content styleCode="Italic s"> (98-107 MEQ/L)</content> Creatinine 0.5-1.3 <content [facility] [Mass/volume] in styleCode="Bold"> Chung hs Serum or Plasma Creatinine Medical </content>1.1 Center MG/DL<content styleCode="Italic s"> (0.5-1.3 MG/DL)</content> Carbon dioxide, 22-30 <content [facility] total styleCode="Bold"> Mahnaz [Moles/volume] in Carbon Dioxide Medical Serum or Plasma </content>28 Center MEQ/L<content styleCode="Italic s"> (22-30 MEQ/L)</content> UNK 7-17 <content [facility] styleCode="Bold"> Mahnaz BUN </content>14 Medical MG/DL<content Center styleCode="Italic s"> (7-17 MG/DL)</content> Glucose 74-106 Above high <content [facility] [Mass/volume] in normal styleCode="Bold"> Chung hs Serum or Plasma Glucose Medical </content>124 Center MG/DL H<content styleCode="Italic s"> (74-106 MG/DL)</content> UNK > 60 <content [facility] styleCode="Bold"> Mahnaz EGFR </content>62 Medical GFR<content Center styleCode="Italic s"> (> 60 GFR)</content> Aspartate 14-36 <content [facility] aminotransferase styleCode="Bold"> Chung hs [Enzymatic Aspartate Medical activity/volume] Aminotransferase Center in Serum or Plasma (AST) </content>31 IU/L<content styleCode="Italic s"> (14-36 IU/L)</content> Calcium 8.4-10. <content [facility] [Mass/volume] in 2 styleCode="Bold"> Chung hs Serum or Plasma Calcium Medical </content>9.9 Center MG/DL<content styleCode="Italic s"> (8.4-10.2 MG/DL)</content> Alanine 7-30 <content [facility] aminotransferase styleCode="Bold"> Chung hs [Enzymatic Alanine Medical activity/volume] Aminotransferase Center in Serum or Plasma (ALT) </content>17 IU/L<content styleCode="Italic s"> (7-30 IU/L)</content> Alkaline 38-126 <content [facility] phosphatase styleCode="Bold"> Mahnaz [Enzymatic Alkaline Medical activity/volume] Phosphatase (ALP) Cente r in Serum or Plasma </content>105 IU/L<content styleCode="Italic s"> (38-126 IU/L)</content> Albumin 3.5-5.0 <content [facility] [Mass/volume] in styleCode="Bold"> Chung hs Serum or Plasma Albumin Medical </content>4.2 Center G/DL<content styleCode="Italic s"> (3.5-5.0 G/DL)</content> Bilirubin.total 0.2-1.3 <content [facility] [Mass/volume] in styleCode="Bold"> Chung hs Serum or Plasma Bilirubin Total Medical </content>0.5 Center MG/DL<content styleCode="Italic s"> (0.2-1.3 MG/DL)</content> ID Date Data Source Urinalysis.[id number] 02/11/2018 01:55:00 PM MAT[facility] 0 Name Value Range Interpretation Description Data Sup porting Code Source(s) Document(s ) Color of Urine YELLOW <content [facility] styleCode="Abbie Maress d">Color, Medical Urine Center </content>YELL OW <content styleCode="Reyna lics"> (YELLOW )</content> UNK CLEAR <content [facility] styleCode="Abbie Maress d">Urine Medical Clarity Center </content>LELAND R <content styleCode="Reyna lics"> (CLEAR )</content> Glucose NEGATIVE <content [facility] [Mass/volume] styleCode="Abbie Joay in Urine by d">Urine Medical Test strip Glucose Center </content>NEGA TIVE MG/DL<content styleCode="Reyna lics"> (NEGATIVE MG/DL)</conten t> Ketones NEGATIVE <content [facility] [Mass/volume] styleCode="Abbie Maress in Urine by d">Urine Medical Test strip Ketone Center </content>NEGA TIVE MG/DL<content styleCode="Reyna lics"> (NEGATIVE MG/DL)</conten t> UNK NEGATIVE <content [facility] styleCode="Abbie Maress d">Urine Medical Bilirubin Center </content>NEGA TIVE <content styleCode="Reyna lics"> (NEGATIVE )</content> Hemoglobin NEGATIVE <content [facility] [Presence] in styleCode="Abbie Joya Urine by Test d">Urine Blood Medical strip </content>TRAC Center E <content styleCode="Reyna lics"> (NEGATIVE )</content> Specific 1.015-1.02 Below low normal <content [facility] gravity of 5 styleCode="Abbie Joya Urine by Test d">Urine Medical strip Specific Center [place] </content>1.01 0 NM L<content styleCode="Reyna lics"> (1.015-1.025 NM)</content> Protein NEGATIVE <content [facility] [Mass/volume] styleCode="Abbie Joya in Urine by d">Urine Medical Test strip Protein Center </content>NEGA TIVE MG/DL<content styleCode="Reyna lics"> (NEGATIVE MG/DL)</conten t> pH of Urine by 4.5-8.0 <content [facility] Test strip styleCode="Abbie Mahnaz d">Urine pH Medical </content>6.0 Center NM<content styleCode="Reyna lics"> (4.5-8.0 NM)</content> Nitrite NEGATIVE <content [facility] [Presence] in styleCode="Abbie Maress Urine by Test d">Urine Medical strip Nitrite Center </content>NEGA TIVE <content styleCode="Reyna lics"> (NEGATIVE )</content> Urobilinogen 0.2-1.0 <content [facility] [Units/volume] styleCode="Abbie Maress in Urine by d">Urine Medical Test strip Urobilinogen Center </content>0.2 MG/DL<content styleCode="Reyna lics"> (0.2-1.0 MG/DL)</conten t> UNK 0-3 <content [facility] styleCode="Abbie Mahnaz d">Urine Red Medical Blood Cell Center </content>3-5 HPF<content styleCode="Reyna lics"> (0-3 HPF)</content> Leukocyte NEGATIVE <content [facility] esterase styleCode="Abbie Maress [Presence] in d">Urine Medical Urine by Test Leukocyte Center strip </content>MODE RATE <content styleCode="Reyna lics"> (NEGATIVE )</content> UNK 0-3 <content [facility] styleCode="Abbie Mahnaz d">Urine White Medical Blood Cell Center </content>20 - 50 HPF<content styleCode="Reyna lics"> (0-3 HPF)</content> UNK NEGATIVE <content [facility] styleCode="Abbie Mahnaz d">Urine Medical Bacteria Center </content>MODE RATE HPF<content styleCode="Reyna lics"> (NEGATIVE HPF)</content> UNK <content [facility] styleCode="Abbie Mahnaz d">Epithelial Medical Cell Center </content>2-5 LPF (Reference Range: not available)<br/ > ID Date Data Source Liver 02/11/2018 01:55:00 PM EST [facility] Profile.[id number] Name Value Range Interpretation Description Data Sup porting Code Source(s) Document(s ) Aspartate 14-36 <content [facility] aminotransferase styleCode="Bold"> Chung hs [Enzymatic Aspartate Medical activity/volume] Aminotransferase Center in Serum or Plasma (AST) </content>25 IU/L<content styleCode="Italic s"> (14-36 IU/L)</content> Alanine 7-30 <content [facility] aminotransferase styleCode="Bold"> Chung hs [Enzymatic Alanine Medical activity/volume] Aminotransferase Center in Serum or Plasma (ALT) </content>16 IU/L<content styleCode="Italic s"> (7-30 IU/L)</content> Bilirubin.total 0.2-1.3 <content [facility] [Mass/volume] in styleCode="Bold"> Chung hs Serum or Plasma Bilirubin Total Medical </content>0.7 Center MG/DL<content styleCode="Italic s"> (0.2-1.3 MG/DL)</content> Alkaline 38-126 <content [facility] phosphatase styleCode="Bold"> Mahnaz [Enzymatic Alkaline Medical activity/volume] Phosphatase (ALP) Cente r in Serum or Plasma </content>89 IU/L<content styleCode="Italic s"> (38-126 IU/L)</content> Albumin 3.5-5.0 <content [facility] [Mass/volume] in styleCode="Bold"> Chung hs Serum or Plasma Albumin Medical </content>4.3 Center G/DL<content styleCode="Italic s"> (3.5-5.0 G/DL)</content> ID Date Data Source Hormones.[id number] 02/11/2018 01:55:00 PM MATTI [facility] Name Value Range Interpretation Description Data Sup porting Code Source(s) Document(s ) UNK 5.53-11. <content [facility] 0 styleCode="Abbie Mahnaz d">Thyroxine Medical (T4) Center </content>8.00 UG/DL<content styleCode="Reyna lics"> (5.53-11.0 UG/DL)</conten t> Thyrotropin 0.465-4. <content [facility] [Units/volume] 68 styleCode="Abbie Mahnaz in Serum or d">Thyroid Medical Plasma by Stimulating Center Detection Hormone limit <= 0.05 </content>1.46 mIU/L MIU/L<content styleCode="Reyna lics"> (0.465-4.68 MIU/L)</conten t> ID Date Data Source HematologyRou.[id number] 02/11/2018 01:55:00 PM MATTI Calabrese [facility] 0500 Name Value Range Interpretation Description Data Sup porting Code Source(s) Document(s ) Leukocytes 4.4-11.0 <content [facility] [#/volume] in styleCode="Bold Mahnaz Blood by ">White Blood Medical Automated count Cell Count Center </content>5.69 KCUMM<content styleCode="Ital ics"> (4.4-11.0 KCUMM)</content > Hemoglobin 12.3-16. Below low normal <content [facility] [Mass/volume] in 0 styleCode="Bold Mahnaz Blood ">Hemoglobin Medical </content>12.1 Center G/DL L<content styleCode="Ital ics"> (12.3-16.0 G/DL)</content> Erythrocytes 4.0-5.1 <content [facility] [#/volume] in styleCode="Bold Mahnaz Blood by ">Red Blood Medical Automated count Cell Count Center </content>4.86 MCUMM<content styleCode="Ital ics"> (4.0-5.1 MCUMM)</content > Erythrocyte mean 80.0-100 <content [facility] corpuscular .0 styleCode="Bold Mahnaz volume [Entitic ">Mean Medical volume] by Corpuscular Center Automated count Volume </content>78.6 FL<content styleCode="Ital ics"> (80.0-100.0 FL)</content> Hematocrit 36.0-46. <content [facility] [Volume 0 styleCode="Bold Mahnaz Fraction] of ">Hematocrit Medical Blood by </content>38.2 Center Automated count %<content styleCode="Ital ics"> (36.0-46.0 %)</content> Erythrocyte mean 32.0-37. Below low normal <content [facility] corpuscular 0 styleCode="Bold Mahnaz hemoglobin ">Mean Corpus. Medical concentration Hgb Center [Mass/volume] by Concentration Automated count (MCHC) </content>31.7 G/DL L<content styleCode="Ital ics"> (32.0-37.0 G/DL)</content> Erythrocyte mean 26.0-34. Below low normal <content [facility] corpuscular 0 styleCode="Bold Mahnaz hemoglobin ">Mean Medical [Entitic mass] Corposcular Center by Automated Hemoglobin count </content>24.9 PG L<content styleCode="Ital ics"> (26.0-34.0 PG)</content> Erythrocyte 11.5-14. Above high <content [facility] distribution 5 normal styleCode="Bold Mahnaz width [Ratio] by ">Red Cell Medical Automated count Distribution Center Width </content>14.6 % H<content styleCode="Ital ics"> (11.5-14.5 %)</content> Platelets 130-400 <content [facility] [#/volume] in styleCode="Bold Mahnaz Blood by ">Platelet Medical Automated count Count Center </content>209 KCUMM<content styleCode="Ital ics"> (130-400 KCUMM)</content > Neutrophils 36-66 <content [facility] [#/volume] in styleCode="Bold Mahnaz Blood by ">Neutrophil Medical Automated count </content>40.5 Center %<content styleCode="Ital ics"> (36-66 %)</content> Platelet mean 8.0-11.0 Above high <content [facility] volume [Entitic normal styleCode="Bold Mahnaz volume] in Blood ">Mean Platelet Medical by Automated Volume Center count </content>11.3 FL H<content styleCode="Ital ics"> (8.0-11.0 FL)</content> Lymphocytes 24.0-44. Above high <content [facility] [#/volume] in 0 normal styleCode="Bold Mahnaz Blood by ">Lymphocyte Medical Automated count </content>44.1 Center % H<content styleCode="Ital ics"> (24.0-44.0 %)</content> UNK 1.6-7.3 <content [facility] styleCode="Bold Mahnaz ">Neutrophil Medical Count Center </content>2.30 KCUMM<content styleCode="Ital ics"> (1.6-7.3 KCUMM)</content > UNK 1.0-4.8 <content [facility] styleCode="Bold Mahnaz ">Lymphocyte Medical Count Center </content>2.51 KCUMM<content styleCode="Ital ics"> (1.0-4.8 KCUMM)</content > UNK 0.2-0.9 <content [facility] styleCode="Bold Mahnaz ">Monocyte Medical Count Center </content>0.61 KCUMM<content styleCode="Ital ics"> (0.2-0.9 KCUMM)</content > Monocytes 3.0-10.0 Above high <content [facility] [#/volume] in normal styleCode="Bold Mahnaz Blood by ">Monocyte Medical Automated count </content>10.7 Center % H<content styleCode="Ital ics"> (3.0-10.0 %)</content> Eosinophils 0-5.0 <content [facility] [#/volume] in styleCode="Bold Amhnaz Blood by ">Eosinophil Medical Automated count </content>4.0 Center %<content styleCode="Ital ics"> (0-5.0 %)</content> UNK 0.0-0.6 <content [facility] styleCode="Bold Mahnaz ">Eosinophil Medical Count Center </content>0.23 KCUMM<content styleCode="Ital ics"> (0.0-0.6 KCUMM)</content > Basophils 0.0-1.0 <content [facility] [#/volume] in styleCode="Bold Mahnaz Blood by ">Basophil Medical Automated count </content>0.5 Center %<content styleCode="Ital ics"> (0.0-1.0 %)</content> UNK 0.0-0.3 <content [facility] styleCode="Bold Mahnaz ">Basophil Medical Count Center </content>0.03 KCUMM<content styleCode="Ital ics"> (0.0-0.3 KCUMM)</content > UNK 0 <content [facility] styleCode="Bold Mahnaz ">Nucleated Red Medical Blood Cell Center </content>0.0 /100<content styleCode="Ital ics"> (0 /100)</content> UNK 0.0 <content [facility] styleCode="Bold Mahnaz ">Nucleated Red Medical Blood Cell Center Count </content>0.00 KCUMM<content styleCode="Ital ics"> (0.0 KCUMM)</content > UNK 0-0.1 <content [facility] styleCode="Bold Mahnaz ">Immature Medical Granulocyte Center Count </content>0.01 KCUMM<content styleCode="Ital ics"> (0-0.1 KCUMM)</content > UNK < 1 <content [facility] styleCode="Bold Mahnaz ">Immature Medical Granulocyte Center Ratio </content>0.2 %<content styleCode="Ital ics"> (< 1 %)</content> ID Date Data Source GFR(Creatinine).[id number] 02/11/2018 01:55:00 PM [facility] [id number] Name Value Range Interpretation Code Description Data Georgina rce(s) Supporting Document(s ) UNK > 60 <content [facility] styleCode="Bold"> Medical Cent er EGFR </content>70 GFR<content styleCode="Italic s"> (> 60 GFR)</content> ID Date Data Source CHMROUTINECCDA.[id number] 02/11/2018 01:55:00 PM [facility] -[id number] Name Value Range Interpretation Description Data Sup porting Code Source(s) Document(s ) UNK >= 1.0 <content [facility] styleCode="Abbie Mahnaz d">AG Ratio Medical </content>1.2 Center NM<content styleCode="Reyna lics"> (>= 1.0 NM)</content> UNK 2.3-3.5 <content [facility] styleCode="Abbie Mahnaz d">Globulin Medical </content>3.5 Center G/DL<content styleCode="Reyna lics"> (2.3-3.5 G/DL)</content > Protein 6.3-8.2 <content [facility] [Mass/volu styleCode="Abbie Joya me] in d">Total Medical Serum or Protein Center Plasma </content>7.8 G/DL<content styleCode="Reyna lics"> (6.3-8.2 G/DL)</content > UNK Not <content [facility] Established styleCode="Abbie Maress d">[facility] </content>0.7 mg/dL<content styleCode="Reyna lics"> (Not Established mg/dL)</conten t> UNK 4.2-5.8 Above high normal <content [facility] styleCode="Abbie Maress d">Hemoglobin Medical A1C Center </content>7.3 % H<content styleCode="Reyna lics"> (4.2-5.8 %)</content> Urate 3.8-8.5 <content [facility] [Mass/volu styleCode="Abbie Joya ak] in d">Uric Acid Medical Serum or </content>6.7 Center Plasma MG/DL<content styleCode="Reyna lics"> (3.8-8.5 MG/DL)</conten t> ID Date Data Source [id number] 02/11/2018 01:55:00 PM EST [facility] Center Name Value Range Interpretation Description Data Sup porting Code Source(s) Document(s ) Sodium 137-145 <content [facility] [Moles/volume] in styleCode="Bold"> [facility] Serum or Plasma Sodium Medical </content>142 Center MEQ/L<content styleCode="Italic s"> (137-145 MEQ/L)</content> Potassium 3.5-5.3 <content [facility] [Moles/volume] in styleCode="Bold"> [facility] Serum or Plasma Potassium Medical </content>3.9 Center MEQ/L<content styleCode="Italic s"> (3.5-5.3 MEQ/L)</content> Carbon dioxide, 22-30 <content [facility] total styleCode="Bold"> Mahnaz [Moles/volume] in Carbon Dioxide Medical Serum or Plasma </content>29 Center MEQ/L<content styleCode="Italic s"> (22-30 MEQ/L)</content> Chloride 98-107 <content [facility] [Moles/volume] in styleCode="Bold"> Trey phs Serum or Plasma Chloride Medical </content>104 Center MEQ/L<content styleCode="Italic s"> (98-107 MEQ/L)</content> Glucose 74-106 Above high <content [facility] [Mass/volume] in normal styleCode="Bold"> Chung hs Serum or Plasma Glucose Medical </content>122 Center MG/DL H<content styleCode="Italic s"> (74-106 MG/DL)</content> Creatinine 0.5-1.3 <content [facility] [Mass/volume] in styleCode="Bold"> Chung hs Serum or Plasma Creatinine Medical </content>1.0 Center MG/DL<content styleCode="Italic s"> (0.5-1.3 MG/DL)</content> UNK 7-17 <content [facility] styleCode="Bold"> Mahnaz BUN </content>12 Medical MG/DL<content Center styleCode="Italic s"> (7-17 MG/DL)</content> Calcium 8.4-10. <content [facility] [Mass/volume] in 2 styleCode="Bold"> Chung hs Serum or Plasma Calcium Medical </content>9.5 Center MG/DL<content styleCode="Italic s"> (8.4-10.2 MG/DL)</content> UNK > 60 <content [facility] styleCode="Bold"> Mahnaz EGFR </content>70 Medical GFR<content Center styleCode="Italic s"> (> 60 GFR)</content> Aspartate 14-36 <content [facility] aminotransferase styleCode="Bold"> Chung hs [Enzymatic Aspartate Medical activity/volume] Aminotransferase Center in Serum or Plasma (AST) </content>25 IU/L<content styleCode="Italic s"> (14-36 IU/L)</content> Alanine 7-30 <content [facility] aminotransferase styleCode="Bold"> Chung hs [Enzymatic Alanine Medical activity/volume] Aminotransferase Center in Serum or Plasma (ALT) </content>16 IU/L<content styleCode="Italic s"> (7-30 IU/L)</content> Alkaline 38-126 <content [facility] phosphatase styleCode="Bold"> Mahnaz [Enzymatic Alkaline Medical activity/volume] Phosphatase (ALP) Cente r in Serum or Plasma </content>89 IU/L<content styleCode="Italic s"> (38-126 IU/L)</content> Bilirubin.total 0.2-1.3 <content [facility] [Mass/volume] in styleCode="Bold"> Chung hs Serum or Plasma Bilirubin Total Medical </content>0.7 Center MG/DL<content styleCode="Italic s"> (0.2-1.3 MG/DL)</content> Albumin 3.5-5.0 <content [facility] [Mass/volume] in styleCode="Bold"> Chung hs Serum or Plasma Albumin Medical </content>4.3 Center G/DL<content styleCode="Italic s"> (3.5-5.0 G/DL)</content> ID Date Data Source Urinalysis 02/11/2018 01:55:00 PM EST [facility] Name Value Range Interpretation Description Data Sup porting Code Source(s) Document(s ) UNK CLEAR <content [facility] styleCode="Abbie Mahnaz d">Urine Medical Clarity Center </content>LELAND R <content styleCode="Reyna lics"> (CLEAR )</content> Glucose NEGATIVE <content [facility] [Mass/volume] styleCode="Abbie Mahnaz in Urine by d">Urine Medical Test strip Glucose Center </content>NEGA TIVE MG/DL<content styleCode="Reyna lics"> (NEGATIVE MG/DL)</conten t> Color of Urine YELLOW <content [facility] styleCode="Abbie Mahnaz d">Color, Medical Urine Center </content>YELL OW <content styleCode="Reyna lics"> (YELLOW )</content> UNK NEGATIVE <content [facility] styleCode="Abbie Mahnaz d">Urine Medical Bilirubin Center </content>NEGA TIVE <content styleCode="Reyna lics"> (NEGATIVE )</content> Ketones NEGATIVE <content [facility] [Mass/volume] styleCode="Abbie Mahnaz in Urine by d">Urine Medical Test strip Ketone Center </content>NEGA TIVE MG/DL<content styleCode="Reyna lics"> (NEGATIVE MG/DL)</conten t> Specific 1.015-1.02 Below low normal <content [facility] gravity of 5 styleCode="Abbie Mahnaz Urine by Test d">Urine Medical strip Specific Center [place] </content>1.01 0 NM L<content styleCode="Reyna lics"> (1.015-1.025 NM)</content> Hemoglobin NEGATIVE <content [facility] [Presence] in styleCode="Abbie Mahnaz Urine by Test d">Urine Blood Medical strip </content>TRAC Center E <content styleCode="Reyna lics"> (NEGATIVE )</content> Urobilinogen 0.2-1.0 <content [facility] [Units/volume] styleCode="Abbie Mahnaz in Urine by d">Urine Medical Test strip Urobilinogen Center </content>0.2 MG/DL<content styleCode="Reyna lics"> (0.2-1.0 MG/DL)</conten t> Protein NEGATIVE <content [facility] [Mass/volume] styleCode="Abbie Mahnaz in Urine by d">Urine Medical Test strip Protein Center </content>NEGA TIVE MG/DL<content styleCode="Reyna lics"> (NEGATIVE MG/DL)</conten t> pH of Urine by 4.5-8.0 <content [facility] Test strip styleCode="Abbie Mahnaz d">Urine pH Medical </content>6.0 Center NM<content styleCode="Reyna lics"> (4.5-8.0 NM)</content> Leukocyte NEGATIVE <content [facility] esterase styleCode="Abbie Mahnaz [Presence] in d">Urine Medical Urine by Test Leukocyte Center strip </content>MODE RATE <content styleCode="Reyna lics"> (NEGATIVE )</content> Nitrite NEGATIVE <content [facility] [Presence] in styleCode="Abbie Mahnaz Urine by Test d">Urine Medical strip Nitrite Center </content>NEGA TIVE <content styleCode="Reyna lics"> (NEGATIVE )</content> UNK 0-3 <content Saint styleCode="[facility] Mahnaz d">Urine White Medical Blood Cell Center </content>20 - 50 HPF<content styleCode="Reyna lics"> (0-3 HPF)</content> UNK 0-3 <content Saint styleCode="[facility] Mahnaz d">Urine Red Medical Blood Cell Center </content>3-5 HPF<content styleCode="Reyna lics"> (0-3 HPF)</content> UNK NEGATIVE <content Saint styleCode="[facility] Mahnaz d">Urine Medical Bacteria Center </content>MODE RATE HPF<content styleCode="Reyna lics"> (NEGATIVE HPF)</content> UNK <content Saint styleCode="[facility] Mahnaz d">Epithelial Medical Cell Center </content>2-5 LPF (Reference Range: not available)<br/ > ID Date Data Source Liver Profile 02/11/2018 01:55:00 PM EST [facility] Name Value Range Interpretation Description Data Sup porting Code Source(s) Document(s ) Aspartate 14-36 <content [facility] aminotransferase styleCode="Bold"> Chung hs [Enzymatic Aspartate Medical activity/volume] Aminotransferase Center in Serum or Plasma (AST) </content>25 IU/L<content styleCode="Italic s"> (14-36 IU/L)</content> Alkaline 38-126 <content phosphatase styleCode="Bold"> Mahnaz [Enzymatic Alkaline Medical activity/volume] Phosphatase (ALP) Cente r in Serum or Plasma </content>89 IU/L<content styleCode="Italic s"> (38-126 IU/L)</content> Alanine 7-30 <content aminotransferase styleCode="Bold"> Chung hs [Enzymatic Alanine Medical activity/volume] Aminotransferase Center in Serum or Plasma (ALT) </content>16 IU/L<content styleCode="Italic s"> (7-30 IU/L)</content> Bilirubin.total 0.2-1.3 <content [facility] [Mass/volume] in styleCode="Bold"> Chung hs Serum or Plasma Bilirubin Total Medical </content>0.7 Center MG/DL<content styleCode="Italic s"> (0.2-1.3 MG/DL)</content> Albumin 3.5-5.0 <content [facility] [Mass/volume] in styleCode="Bold"> Chung hs Serum or Plasma Albumin Medical </content>4.3 Center G/DL<content styleCode="Italic s"> (3.5-5.0 G/DL)</content> ID Date Data Source Hormones 02/11/2018 01:55:00 PM [facility] Name Value Range Interpretation Description Data Sup porting Code Source(s) Document(s ) UNK 5.53-11. <content [facility] 0 styleCode="Abbie Mahnaz d">Thyroxine Medical (T4) Center </content>8.00 UG/DL<content styleCode="Reyna lics"> (5.53-11.0 UG/DL)</conten t> Thyrotropin 0.465-4. <content [facility] [Units/volume] 68 styleCode="Abbie Mahnaz in Serum or d">Thyroid Medical Plasma by Stimulating Center Detection Hormone limit <= 0.05 </content>1.46 mIU/L MIU/L<content styleCode="Reyna lics"> (0.465-4.68 MIU/L)</conten t> ID Date Data Source HematologyRou 02/11/2018 01:55:00 PM [facility] Name Value Range Interpretation Description Data Sup porting Code Source(s) Document(s ) Leukocytes 4.4-11.0 <content [facility] [#/volume] in styleCode="Bold Mahnaz Blood by ">White Blood Medical Automated count Cell Count Center </content>5.69 KCUMM<content styleCode="Ital ics"> (4.4-11.0 KCUMM)</content > Erythrocytes 4.0-5.1 <content [facility] [#/volume] in styleCode="Bold Mahnaz Blood by ">Red Blood Medical Automated count Cell Count Center </content>4.86 MCUMM<content styleCode="Ital ics"> (4.0-5.1 MCUMM)</content > Hematocrit 36.0-46. <content [facility] [Volume 0 styleCode="Bold Mahnaz Fraction] of ">Hematocrit Medical Blood by </content>38.2 Center Automated count %<content styleCode="Ital ics"> (36.0-46.0 %)</content> Hemoglobin 12.3-16. Below low normal <content [facility] [Mass/volume] in 0 styleCode="Bold Mahnaz Blood ">Hemoglobin Medical </content>12.1 Center G/DL L<content styleCode="Ital ics"> (12.3-16.0 G/DL)</content> Erythrocyte mean 80.0-100 <content [facility] corpuscular .0 styleCode="Bold Mahnaz volume [Entitic ">Mean Medical volume] by Corpuscular Center Automated count Volume </content>78.6 FL<content styleCode="Ital ics"> (80.0-100.0 FL)</content> Erythrocyte 11.5-14. Above high <content [facility] distribution 5 normal styleCode="Bold Mahnaz width [Ratio] by ">Red Cell Medical Automated count Distribution Center Width </content>14.6 % H<content styleCode="Ital ics"> (11.5-14.5 %)</content> Erythrocyte mean 32.0-37. Below low normal <content [facility] corpuscular 0 styleCode="Bold Mahnaz hemoglobin ">Mean Corpus. Medical concentration Hgb Center [Mass/volume] by Concentration Automated count (MCHC) </content>31.7 G/DL L<content styleCode="Ital ics"> (32.0-37.0 G/DL)</content> Erythrocyte mean 26.0-34. Below low normal <content [facility] corpuscular 0 styleCode="Bold Mahnaz hemoglobin ">Mean Medical [Entitic mass] Corposcular Center by Automated Hemoglobin count </content>24.9 PG L<content styleCode="Ital ics"> (26.0-34.0 PG)</content> Platelet mean 8.0-11.0 Above high <content [facility] volume [Entitic normal styleCode="Bold Mahnaz volume] in Blood ">Mean Platelet Medical by Automated Volume Center count </content>11.3 FL H<content styleCode="Ital ics"> (8.0-11.0 FL)</content> Platelets 130-400 <content [facility] [#/volume] in styleCode="Bold Mahnaz Blood by ">Platelet Medical Automated count Count Center </content>209 KCUMM<content styleCode="Ital ics"> (130-400 KCUMM)</content > Lymphocytes 24.0-44. Above high <content [facility] [#/volume] in 0 normal styleCode="Bold Mahnaz Blood by ">Lymphocyte Medical Automated count </content>44.1 Center % H<content styleCode="Ital ics"> (24.0-44.0 %)</content> Neutrophils 36-66 <content [facility] [#/volume] in styleCode="Bold Mahnaz Blood by ">Neutrophil Medical Automated count </content>40.5 Center %<content styleCode="Ital ics"> (36-66 %)</content> UNK 1.6-7.3 <content [facility] styleCode="Bold Mahnaz ">Neutrophil Medical Count Center </content>2.30 KCUMM<content styleCode="Ital ics"> (1.6-7.3 KCUMM)</content > Monocytes 3.0-10.0 Above high <content [facility] [#/volume] in normal styleCode="Bold Mahnaz Blood by ">Monocyte Medical Automated count </content>10.7 Center % H<content styleCode="Ital ics"> (3.0-10.0 %)</content> UNK 1.0-4.8 <content [facility] styleCode="Bold Mahnaz ">Lymphocyte Medical Count Center </content>2.51 KCUMM<content styleCode="Ital ics"> (1.0-4.8 KCUMM)</content > UNK 0.2-0.9 <content [facility] styleCode="Bold Mahnaz ">Monocyte Medical Count Center </content>0.61 KCUMM<content styleCode="Ital ics"> (0.2-0.9 KCUMM)</content > UNK 0.0-0.6 <content [facility] styleCode="Bold Mahnaz ">Eosinophil Medical Count Center </content>0.23 KCUMM<content styleCode="Ital ics"> (0.0-0.6 KCUMM)</content > Eosinophils 0-5.0 <content [facility] [#/volume] in styleCode="Bold Mahnaz Blood by ">Eosinophil Medical Automated count </content>4.0 Center %<content styleCode="Ital ics"> (0-5.0 %)</content> Basophils 0.0-1.0 <content [facility] [#/volume] in styleCode="Bold Mahnaz Blood by ">Basophil Medical Automated count </content>0.5 Center %<content styleCode="Ital ics"> (0.0-1.0 %)</content> UNK 0.0-0.3 <content [facility] styleCode="Bold Mahnaz ">Basophil Medical Count Center </content>0.03 KCUMM<content styleCode="Ital ics"> (0.0-0.3 KCUMM)</content > UNK 0.0 <content [facility] styleCode="Bold Mahnaz ">Nucleated Red Medical Blood Cell Center Count </content>0.00 KCUMM<content styleCode="Ital ics"> (0.0 KCUMM)</content > UNK 0-0.1 <content [facility] styleCode="Bold Mahnaz ">Immature Medical Granulocyte Center Count </content>0.01 KCUMM<content styleCode="Ital ics"> (0-0.1 KCUMM)</content > UNK 0 <content [facility] styleCode="Bold Mahnaz ">Nucleated Red Medical Blood Cell Center </content>0.0 /100<content styleCode="Ital ics"> (0 /100)</content> UNK < 1 <content [facility] styleCode="Bold Mahnaz ">Immature Medical Granulocyte Center Ratio </content>0.2 %<content styleCode="Ital ics"> (< 1 %)</content> ID Date Data Source GFR(Creatinine) 02/11/2018 01:55:00 PM [facility] Name Value Range Interpretation Code Description Data Georgina rce(s) Supporting Document(s ) UNK > 60 <content [facility] styleCode="Bold"> Medical Cent er EGFR </content>70 GFR<content styleCode="Italic s"> (> 60 GFR)</content> ID Date Data Source CHMROUTINECCDA 02/11/2018 01:55:00 PM [facility] Name Value Range Interpretation Description Data Sup porting Code Source(s) Document(s ) UNK >= 1.0 <content [facility] styleCode="Bold Medical ">AG Ratio Center </content>1.2 NM<content styleCode="Ital ics"> (>= 1.0 NM)</content> UNK 4.2-5.8 Above high normal <content [facility] styleCode="Bold Medical ">Hemoglobin Center A1C </content>7.3 % H<content styleCode="Ital ics"> (4.2-5.8 %)</content> UNK 2.3-3.5 <content [facility] styleCode="Bold Medical ">Globulin Center </content>3.5 G/DL<content styleCode="Ital ics"> (2.3-3.5 G/DL)</content> Protein 6.3-8.2 <content [facility] [Mass/volum styleCode="Bold Medical e] in Serum ">Total Protein Center or Plasma </content>7.8 G/DL<content styleCode="Ital ics"> (6.3-8.2 G/DL)</content> Urate 3.8-8.5 <content [facility] [Mass/volum styleCode="Bold Medical e] in Serum ">Uric Acid Center or Plasma </content>6.7 MG/DL<content styleCode="Ital ics"> (3.8-8.5 MG/DL)</content > ID Date Data Source BMP 02/11/2018 01:55:00 PM [facility] Name Value Range Interpretation Description Data Sup porting Code Source(s) Document(s ) Sodium 137-145 <content [facility] [Moles/volume] in styleCode="Bold"> Trey phs Serum or Plasma Sodium Medical </content>142 Center MEQ/L<content styleCode="Italic s"> (137-145 MEQ/L)</content> Potassium 3.5-5.3 <content [facility] [Moles/volume] in styleCode="Bold"> [facility] Serum or Plasma Potassium Medical </content>3.9 Center MEQ/L<content styleCode="Italic s"> (3.5-5.3 MEQ/L)</content> Carbon dioxide, 22-30 <content [facility] total styleCode="Bold"> Mahnaz [Moles/volume] in Carbon Dioxide Medical Serum or Plasma </content>29 Center MEQ/L<content styleCode="Italic s"> (22-30 MEQ/L)</content> Chloride 98-107 <content [facility] [Moles/volume] in styleCode="Bold"> [facility] Serum or Plasma Chloride Medical </content>104 Center MEQ/L<content styleCode="Italic s"> (98-107 MEQ/L)</content> Creatinine 0.5-1.3 <content [facility] [Mass/volume] in styleCode="Bold"> Chung hs Serum or Plasma Creatinine Medical </content>1.0 Center MG/DL<content styleCode="Italic s"> (0.5-1.3 MG/DL)</content> UNK 7-17 <content [facility] styleCode="Bold"> Mahnaz BUN </content>12 Medical MG/DL<content Center styleCode="Italic s"> (7-17 MG/DL)</content> Glucose 74-106 Above high <content [facility] [Mass/volume] in normal styleCode="Bold"> Chung hs Serum or Plasma Glucose Medical </content>122 Center MG/DL H<content styleCode="Italic s"> (74-106 MG/DL)</content> Aspartate 14-36 <content [facility] aminotransferase styleCode="Bold"> Chung hs [Enzymatic Aspartate Medical activity/volume] Aminotransferase Center in Serum or Plasma (AST) </content>25 IU/L<content styleCode="Italic s"> (14-36 IU/L)</content> UNK > 60 <content [facility] styleCode="Bold"> Mahnaz EGFR </content>70 Medical GFR<content Center styleCode="Italic s"> (> 60 GFR)</content> Calcium 8.4-10. <content [facility] [Mass/volume] in 2 styleCode="Bold"> Chung hs Serum or Plasma Calcium Medical </content>9.5 Center MG/DL<content styleCode="Italic s"> (8.4-10.2 MG/DL)</content> Alkaline 38-126 <content [facility] phosphatase styleCode="Bold"> Mahnaz [Enzymatic Alkaline Medical activity/volume] Phosphatase (ALP) Cente r in Serum or Plasma </content>89 IU/L<content styleCode="Italic s"> (38-126 IU/L)</content> Alanine 7-30 <content [facility] aminotransferase styleCode="Bold"> Chung hs [Enzymatic Alanine Medical activity/volume] Aminotransferase Center in Serum or Plasma (ALT) </content>16 IU/L<content styleCode="Italic s"> (7-30 IU/L)</content> Bilirubin.total 0.2-1.3 <content [facility] [[facility]/volume] in styleCode="Bold"> Chung hs Serum or Plasma Bilirubin Total Medical </content>0.7 Center MG/DL<content styleCode="Italic s"> (0.2-1.3 MG/DL)</content> Albumin 3.5-5.0 <content [facility] [[facility]/volume] in styleCode="Bold"> Chung hs Serum or Plasma Albumin Medical </content>4.3 Center G/DL<content styleCode="Italic s"> (3.5-5.0 G/DL)</content> ID Date Data Source [id number] 02/11/2018 01:50:00 PM EST [facility] Center Name Value Range Interpretation Description Data Sup porting Code Source(s) Document(s ) Triglyceride < 150 <content [facility] [[facility]/volume] in styleCode="Abbie Mahnaz Serum or Plasma d">Triglycerid [facility] </content>80 MG/DL<content styleCode="Reyna lics"> (< 150 MG/DL)</conten t> Cholesterol -<200 <content [facility] [[facility]/volume] in styleCode="Abbie Mahnaz Serum or Plasma d">Cholesterol Medical </content>155 Center MG/DL<content styleCode="Reyna lics"> (-<200 MG/DL)</conten t> UNK > 60 Below low normal <content [facility] styleCode="Abbie Mahnaz d">HDL- [facility] </content>45 MG/DL L<content styleCode="Reyna lics"> (> 60 MG/DL)</conten t> UNK < 100 <content [facility] styleCode="Abbie Mahnaz d">[facility] </content>94 MG/DL<content styleCode="Reyna lics"> (< 100 MG/DL)</conten t> ID Date Data Source LIPID 02/11/2018 01:50:00 PM EST [facility] Name Value Range Interpretation Description Data Sup porting Code Source(s) Document(s ) Triglyceride < 150 <content [facility] [[facility]/volume] in styleCode="Abbie Mahnaz Serum or Plasma d">Triglycerid [facility] </content>80 MG/DL<content styleCode="Reyna lics"> (< 150 MG/DL)</conten t> UNK > 60 Below low normal <content [facility] styleCode="Abbie Mahnaz d">HDL- [facility] </content>45 MG/DL L<content styleCode="Reyna lics"> (> 60 MG/DL)</conten t> UNK < 100 <content [facility] styleCode="Abbie Mahnaz d">[facility] </content>94 MG/DL<content styleCode="Reyna lics"> (< 100 MG/DL)</conten t> Cholesterol -<200 <content [facility] [[facility]/volume] in styleCode="Abbie Mahnaz Serum or Plasma d">Cholesterol Medical </content>155 Center MG/DL<content styleCode="Reyna lics"> (-<200 MG/DL)</conten t> Procedure Social History Code Duration Value Status Description Data Source(s ) Smoking Unknown if ever completed Unknown if ever Vonnie Joya smoked [facility]
[2019-12-15] MEDS ORDERED: LIDOCAINE PATCH REMOVAL MC SCH (22:00)
== END 2019-12-15 17:46 | disposition home or self-care (01) ==
LOC: JER 14:35
DX: R51 Headache (principal)
CPT/HCPCS: 70450-TC; 99285-25